=== PATIENT | male | born 1985 | race Two or more races ===

== ENCOUNTER 2024-10-27 09:57 | Outpatient (OUT) | payer OTHER, SELFPAY ==
--- OUTSIDE RECORDS SUMMARY | 2024-10-27 10:10 | XMS_ITS | Encounter Summary ---
Author Organization [facility] Address [address] [facility] [place] [address] Care Team Providers Care Component Technician Name Role Phone John Jhaveri Unavailable Unavailab le Ryan Candelario Primary Care Provider [phone] Encounter Details Date Type Department Care Team (Late st Contact Info) Description 05/11/2017 E.D. Visit [facility] Social Work [address] [place] [address] Xenia Eckert LSW [address] [place] [address] Social History Tobacco Use Types Packs/Day Years Used Date Smoking Tobacco: Never Assessed Sex and Gender Information Value Date Recorded Sex Assigned at Male 06/05/2021 8:24 AM EST Legal Sex Male 12:03 PM EST Gender Identity Male 06/05/2021 8:24 AM EST Sexual Orientation Not on file documented as of this encounter Plan of Treatment Not on file documented as of this encounter Visit Diagnoses Not on filedocumented in this encounter Care Teams Component Technician Relationship Specialty Start Date End Date Ryan Candelario APRN-CNP [address] [place] [address] [address] F[address] [facility] PCP - General Family Medicine 08/06/21 John Jhaveri LPCC [address] [place] [address] [place] [address] Group Behavioral Health Therapist 05/03/21 documented as of this encounter
--- OUTSIDE RECORDS SUMMARY | 2024-10-27 10:10 | XMS_ITS | Clinical Summary ---
Author Organization [facility] Address [address] [place] [address] Phone Care Team Providers Care Can Conveyor Feeder Name Role Phone Unavailable Primary Care Provider Unavailabl e Allergies No known active allergies Medications pantoprazole (ProtoNix) 40 mg EC tablet TAKE 1 TABLET BY MOUTH 2 TIMES A DAY FOR 14 DAYS THEN 1 TABLET DAILY 09/02/2024 Active ibuprofen 600 mg tabletIndication s:Cirrhosis of liver with ascites, unspecified hepatic cirrhosis type (Multi) Take 1 tablet (600 mg) by mouth every 6 hours if needed for mild pain (1 - 3) or fever (temp greater than 38.0 C). 30 tablet 09/06/2024 Active Encounters Date Type Department Care Team Description 09/06/2024 12:54 AM EDT - 09/06/2024 9:50 AM EDT Emergency [facility] Emergency Medicine [address] [place] [address] Kojo Wolfe MD Yax, Justin A, Cirrhosis of liver with ascites, unspecified hepatic cirrhosis type (Multi) (Primary Dx); Hypokalemia; Diarrhea, unspecified type Discharge Disposition: Home 09/06/2024 Travel from Last 3 Months Social History Tobacco Use Types Packs/Day Years Used Date Smoking Tobacco: Never Assessed Sex and Gender Information Value Date Recorded Sex Assigned at Not on file Legal Sex Male 11:49 PM EDT Gender Identity Not on file Sexual Orientation Not on file Last Filed Vital Signs Vital Sign Reading Time Taken Comments Blood Pressure 130/85 09/06/2024 5:37 AM EDT Pulse 82 09/06/2024 5:37 AM EDT Temperature 36.6 C (97.8 F) 09/06/2024 12:05 AM EDT Respiratory Rate 16 09/06/2024 5:37 AM EDT Oxygen Saturation 96% 09/06/2024 5:37 AM EDT Inhaled Oxygen Concentration - - Weight 147 kg (325 lb) 09/06/2024 12:05 AM EDT Height 185.4 cm (6' 1 ) 09/06/2024 12:05 AM EDT Body Mass Index 42.88 09/06/2024 12:05 AM EDT Plan of Treatment Upcoming Encounters Date Type Department Care Team (Late st Contact Info) Description 12/04/2024 8:30 AM EDT Office Visit [facility] [address] [facility] [address] [place] [id number] Triston Paulino MD [address] [facility] [address] [place], [place] [id number] Health Maintenance Due Date Last Done Comments HIV Screening 1987 Lipid Panel 1987 Yearly Adult Physical 1987 MMR Vaccines (1 of 1 - Stand rosario series) 08/06/1988 DTaP/Tdap/Td Vaccines (2 - Tdap) 04/30/1999 04/29/19 00 Varicella Vaccines (1 of 2 - 13+ 2-dose series) 08/06/2000 Hepatitis C Screening 08/06/2005 Hepatitis A Vaccines (1 of 2 - Risk 2-dose series) 08/06/2006 Hepatitis B Vaccines (1 of 3 - 19+ 3-dose series) 08/06/2006 Pneumococcal Vaccine: Pediat rics and At-Risk Adult Patients (1 of 2 - PCV) 08/06/2006 COVID-19 Vaccine ( - 2023-2 5 season) 2023 Influenza Vaccine (Season Ended) 2024 Zoster Vaccines (1 of 2) 08/06/2037 HIB Vaccines Aged Out No longer eligi ble based on patient's age to complete this topic HPV Vaccines (No Doses Required) Completed IPV Vaccines Aged Out No longer eligi ble based on patient's age to complete this topic Meningococcal Vaccine Aged Out No indira kristy eligible based on patient's age to complete this topic Rotavirus Vaccines Aged Out No longer eligible based on patient's age to complete this topic Procedures Procedure Name Priority Date/Time Associated Diagnosis Comments CT ABDOMEN PELVIS W IV CONTRAST STAT 09/06/2024 5:39 AM EDT MANUAL DIFFERENTIAL STAT 09/06/2024 1 :54 AM EDT MAGNESIUM Add-On 09/06/2024 1:54 AM EDT COAGULATION SCREEN STAT 09/06/2024 1: 54 AM EDT LIPASE STAT 09/06/2024 1:54 AM EDT COMPREHENSIVE METABOLIC PANEL STAT 09/06/2024 1:54 AM EDT TROPONIN I, HIGH SENSITIVITY STAT 09/06/2024 1:54 AM EDT CBC WITH AUTO DIFFERENTIAL STAT 09/06/2024 1:54 AM EDT from Last 3 Months Results * CT abdomen pelvis w IV contrast (09/06/2024 5:39 AM EDT) Anatomical Region Laterality Modality Abdominal, Body Computed Tomogra phy 09/06/2024 5:47 AM EDT 09/06/2024 5:47 AM EDT Impressions 09/06/2024 7:58 AM EDT 1.Enlarged liver with morphologic changes of chronic hepatocellular disease. The liver is infiltrated with hypodense lesions predominantly involving the caudate lobe and right lobe. Appearance is worrisome for possible infiltrative HCC. Further evaluation with contrast-enhanced enhanced MRI is recommended. 2.Small to moderate volume ascites predominantly perihepatic, right paracolic gutter, and pelvis. 3.Gallbladder wall thickening, likely related to the adjacent liver disease. No calcified gallstones. 4.Colonic diverticulosis without associated inflammatory changes. Signed by Jason Ortiz MD Narrative 09/06/2024 7:58 AM EDT STUDY: CT Abdomen and Pelvis with IV Contrast; 09/06/2024, 05:39 AM INDICATION: Generalized abdominal pain. Additional History: Cirrhosis. COMPARISON: None Available. ACCESSION NUMBER(S): [id number] ORDERING CLINICIAN: KOJO WOLFE TECHNIQUE: CT of the abdomen and pelvis was performed. Contiguous axial images were obtained at 3 mm slice thickness through the abdomen and pelvis. Coronal and sagittal reconstructions at 3 mm slice thickness were performed. Omnipaque 350 75 mL was administered intravenously. FINDINGS: Lower thorax: Lung bases:The lung bases are clear. Heart: The heart is partially imaged. Heart size is normal. Abdomen: Liver: The liver is enlarged with morphologic changes chronic hepatocellular disease. The liver is infiltrated with hypodense lesions predominantly involving the caudate lobe and right lobe. There are small upper abdominal varices. There is a recanalized umbilical vein. Gallbladder: The gallbladder is mildly distended with marked wall thickening, likely related to the adjacent liver disease. No calcified gallstones. Pancreas: The pancreas is normal in appearance with no ductal distention or focal lesion. Spleen: The spleen appears normal. Adrenal glands: Adrenal glands are unremarkable. Kidneys: The kidneys are symmetric in appearance with no nephrolithiasis or obstruction. No solid or cystic lesions. Gastrointestinal tract: The stomach appears normal. No large or small bowel distention or wall thickening. There is moderate colonic diverticulosis without associated inflammatory changes. The appendix appears normal. Vasculature: The aorta is not enlarged. Lymph nodes: No pathologically enlarged lymph nodes are seen. Peritoneum: There is small to moderate volume ascites predominantly perihepatic, right paracolic gutter, and pelvis.. No free air. Abdominal wall: No abdominal wall hernias are seen. There is diffuse anasarca. Pelvis: Reproductive: Unremarkable. Urinary bladder: The bladder is partially distended and unremarkable in appearance. Lymph nodes: No pathologically enlarged lymph nodes are seen. Musculoskeletal: Unremarkable. Procedure Note Jason Ortiz MD - 09/06/2024 STUDY: CT Abdomen and Pelvis with IV Contrast; 09/06/2024, 05:39 AM INDICATION: Generalized abdominal pain. Additional History: Cirrhosis. COMPARISON: None Available. ACCESSION NUMBER(S): [id number] ORDERING CLINICIAN: KOJO WOLFE TECHNIQUE: CT of the abdomen and pelvis was performed. Contiguous axial images were obtained at 3 mm slice thickness through the abdomen and pelvis. Coronal and sagittal reconstructions at 3 mm slice thickness were performed. Omnipaque 350 75 mL was administered intravenously. FINDINGS: Lower thorax: Lung bases:The lung bases are clear. Heart: The heart is partially imaged. Heart size is normal. Abdomen: Liver: The liver is enlarged with morphologic changes chronic hepatocellular disease. The liver is infiltrated with hypodense lesions predominantly involving the caudate lobe and right lobe. There are small upper abdominal varices. There is a recanalized umbilical vein. Gallbladder: The gallbladder is mildly distended with marked wall thickening, likely related to the adjacent liver disease. No calcified gallstones. Pancreas: The pancreas is normal in appearance with no ductal distention or focal lesion. Spleen: The spleen appears normal. Adrenal glands: Adrenal glands are unremarkable. Kidneys: The kidneys are symmetric in appearance with no nephrolithiasis or obstruction. No solid or cystic lesions. Gastrointestinal tract: The stomach appears normal. No large or small bowel distention or wall thickening. There is moderate colonic diverticulosis without associated inflammatory changes. The appendix appears normal. Vasculature: The aorta is not enlarged. Lymph nodes: No pathologically enlarged lymph nodes are seen. Peritoneum: There is small to moderate volume ascites predominantly perihepatic, right paracolic gutter, and pelvis.. No free air. Abdominal wall: No abdominal wall hernias are seen. There is diffuse anasarca. Pelvis: Reproductive: Unremarkable. Urinary bladder: The bladder is partially distended and unremarkable in appearance. Lymph nodes: No pathologically enlarged lymph nodes are seen. Musculoskeletal: Unremarkable. IMPRESSION: 1.Enlarged liver with morphologic changes of chronic hepatocellular disease. The liver is infiltrated with hypodense lesions predominantly involving the caudate lobe and right lobe. Appearance is worrisome for possible infiltrative HCC. Further evaluation with contrast-enhanced enhanced MRI is recommended. 2.Small to moderate volume ascites predominantly perihepatic, right paracolic gutter, and pelvis. 3.Gallbladder wall thickening, likely related to the adjacent liver disease. No calcified gallstones. 4.Colonic diverticulosis without associated inflammatory changes. Signed by Jason Ortiz MD Kojo Wolfe MD IMG CT PROCEDURES Fin al Result * (ABNORMAL) CBC and Auto Differential (09/06/2024 1:54 AM EDT) WBC 14.4(H) 4.4 - 11.3 x10*3/uL LAB HEMATOLOGY METHOD 09/06/2024 3:11 AM EDT [facility] nRBC 0.0 0.0 - 0.0 /100 WBCs LAB HEMATOLOGY METHOD 09/06/2024 3:11 AM EDT [facility] RBC 2.84(L) 4.50 - 5.90 x10*6/uL LAB HEMATOLOGY METHOD 09/06/2024 3:11 AM EDT [facility] Hemoglobin 8.5(L) 13.5 - 17.5 g/dL LAB HEMATOLOGY METHOD 09/06/2024 3:11 AM EDT [facility] Hematocrit 24.1(L) 41.0 - 52.0 % LAB HEMATOLOGY METHOD 09/06/2024 3:11 AM EDT [facility] MCV 85 80 - 100 fL LAB HEMATOLOGY METHOD 09/06/2024 3:11 AM EDT [facility] MCH 29.9 26.0 - 34.0 pg LAB HEMATOLOGY METHOD 09/06/2024 3:11 AM EDT [facility] MCHC 35.3 32.0 - 36.0 g/dL LAB HEMATOLOGY METHOD 09/06/2024 3:11 AM EDT [facility] RDW 30.8(H) 11.5 - 14.5 % LAB HEMATOLOGY METHOD 09/06/2024 3:11 AM EDT [facility] Platelets 306 150 - 450 x10*3/uL LAB HEMATOLOGY METHOD 09/06/2024 3:11 AM EDT [facility] Immature Granulocytes %, Automated 0.4 0.0 - 0.9 % LAB HEMATOLOGY METHOD 09/06/2024 3:11 AM EDT [facility] Comment:Immature Granulocyte Count (IG) includes promyelocytes, myelocytes and metamyelocytes but does not include bands. Percent differential counts (%) should be interpreted in the context of the absolute cell counts (cells/UL). Immature Granulocytes Absolute, Automated 0.06 0.00 - 0.70 x10*3/uL LAB HEMATOLOGY METHOD 09/06/2024 3:11 AM [facility] Blood Venous blood specimen / Unknown Venipuncture / Unknown 09/06/2024 1:54 AM EDT 09/06/2024 2:19 AM EDT Narrative [facility] - 09/06/2024 3:11 AM EDT The previously reported component Neutrophils % is no longer being reported.The previously reported component Lymphocytes % is no longer being reported.The previously reported component Monocytes % is no longer being reported.The previously reported component Eosinophils % is no longer being reported.The previously reported component Basophils % is no longer being reported.The previously reported component Absolute Neutrophils is no longer being reported.The previously reported component Absolute Lymphocytes is no longer being reported.The previously reported component Absolute Monocytes is no longer being reported.The previously reported component Absolute Eosinophils is no longer being reported.The previously reported component Absolute Basophils is no longer being reported. us Jono Washington DO LAB BLOOD ORDERABLES Final Res ult [facility] [address] [address] * (ABNORMAL) Manual Differential (09/06/2024 1:54 AM EDT) Neutrophils %, Manual 77.8 40.0 - 80.0 % 09/06/2024 3:11 AM EDT [facility] Comment:Percent differential counts (%) should be interpreted in the context of the absolute cell counts (cells/uL). Lymphocytes %, Manual 6.0 13.0 - 44.0 % 09/06/2024 3:11 AM EDT [facility] Monocytes %, Manual 5.1 2.0 - 10.0 % 09/06/2024 3:11 AM EDT [facility] Eosinophils %, Manual 2.5 0.0 - 6.0 % 09/06/2024 3:11 AM EDT [facility] Basophils %, Manual 2.6 0.0 - 2.0 % 09/06/2024 3:11 AM EDT [facility] Atypical Lymphocytes %, Manual 6.0 0.0 - 2.0 % 09/06/2024 3:11 AM EDT [facility] Seg Neutrophils Absolute, Manual 11.20(H) 1.20 - 7.00 x10*3/uL 09/06/2024 3:11 AM EDT [facility] Lymphocytes Absolute, Manual 0.86(L) 1.20 - 4.80 x10*3/uL 09/06/2024 3:11 AM EDT [facility] Monocytes Absolute, Manual 0.73 0.10 - 1.00 x10*3/uL 09/06/2024 3:11 AM EDT [facility] Eosinophils Absolute, Manual 0.36 0.00 - 0.70 x10*3/uL 09/06/2024 3:11 AM EDT [facility] Basophils Absolute, Manual 0.37(H) 0.00 - 0.10 x10*3/uL 09/06/2024 3:11 AM EDT [facility] Atypical Lymphs Absolute, Manual 0.86(H) 0.00 - 0.50 x10*3/uL 09/06/2024 3:11 AM EDT [facility] Total Cells Counted 117 09/06/2024 3:11 AM EDT [facility] RBC Morphology See Below 09/06/2024 3:11 AM EDT [facility] Polychromasia Mild 09/06/2024 3:11 AM EDT [facility] Hypochromia Marked 09/06/2024 3:11 AM EDT [facility] Target Cells Many 09/06/2024 3:11 AM EDT [facility] Blood Venous blood specimen / Unknown Venipuncture / Unknown 09/06/2024 1:54 AM EDT 09/06/2024 2:19 AM EDT us Jono Washington DO LAB BLOOD ORDERABLES Final Res ult Performing Organization Address City/State/[facility] Co de Phone Number [facility] [address] [place] [address] * Troponin I, High Sensitivity (09/06/2024 1:54 AM EDT) Pathologist [facility] Troponin I, High Sensitivity (CMC) 5 0 - 53 ng/L LAB IMMUNOASSAY METHOD 09/06/2024 2:49 AM EDT [facility] Blood Venous blood specimen / Unknown Venipuncture / Unknown 09/06/2024 1:54 AM EDT 09/06/2024 2:19 AM EDT Narrative [facility] - 09/06/2024 2:49 AM EDT Less than 99th percentile of normal range cutoff- Female and children under 18 years old <35 ng/L; Male <54 ng/L: Negative Repeat testing should be performed if clinically indicated. Female and children under 18 years old 35-120 ng/L; Male 54-120 ng/L: Consistent with possible cardiac damage and possible increased clinical risk. Serial measurements may help to assess extent of myocardial damage. >120 ng/L: Consistent with cardiac damage, increased clinical risk and myocardial infarction. Serial measurements may help assess extent of myocardial damage. NOTE: Children less than 1 year old may have higher baseline troponin levels and results should be interpreted in conjunction with the overall clinical context. NOTE: Troponin I testing is performed using a different testing methodology at [facility] than at other [facility]. Direct result comparisons should only be made within the same method. Jono Washington DO LAB BLOOD ORDERABLES Final Res ult Performing Organization Address [facility] Co de Phone Number [facility] [id number] [place] [address] * (ABNORMAL) Coagulation Screen (09/06/2024 1:54 AM EDT) Protime 16.1(H) 9.8 - 12.4 seconds LAB COAGULATION METHOD 09/06/2024 2:35 AM EDT [facility] INR 1.5(H) 0.9 - 1.1 LAB COAGULATION METHOD 09/06/2024 2:35 AM EDT [facility] aPTT 35 26 - 36 seconds LAB COAGULATION METHOD 09/06/2024 2:35 AM EDT [facility] Blood Venous blood specimen / Unknown Venipuncture / Unknown 09/06/2024 1:54 AM EDT 09/06/2024 2:19 AM EDT [facility] - 09/06/2024 2:35 AM EDT The APTT is no longer used for monitoring Unfractionated Heparin Therapy. For monitoring Heparin Therapy, use the Heparin Assay. Jono Washington DO LAB BLOOD ORDERABLES Final Res ult Performing Organization Address [facility] Co de Phone Number [facility] [id number] [place] [phone] * (ABNORMAL) Magnesium (09/06/2024 1:54 AM EDT) [facility] Magnesium 1.53(L) 1.60 - 2.40 mg/dL LAB CHEMISTRY METHOD 09/06/2024 3:39 AM EDT [facility] Blood Venous blood specimen / Unknown Venipuncture / Unknown 09/06/2024 1:54 AM EDT 09/06/2024 2:19 AM EDT Kojo Wolfe MD LAB BLOOD ORDERABLES Final Result Performing Organization Address [facility] Co de Phone Number [facility] [address] [place] [phone] * Lipase (09/06/2024 1:54 AM EDT) [facility] Lipase 65 9 - 82 U/L LAB CHEMISTRY METHOD 09/06/2024 3:04 AM EDT [facility] Comment:F-zedicu-l-benzoquin one imine (metabolite of Acetaminophen)will generate erroneously low results in samples for patients that have taken toxic doses of acetaminophen. Blood Venous blood specimen / Unknown Venipuncture / Unknown 09/06/2024 1:54 AM EDT 09/06/2024 2:19 AM EDT Narrative [facility] - 09/06/2024 3:04 AM EDT Venipuncture immediately after or during the administration of Metamizole may lead to falsely low results. Testing should be performed immediately prior to Metamizole dosing. Jono Washington DO LAB BLOOD ORDERABLES Final Res ult Performing Organization Address [facility]/ZIP Co de Phone Number [facility] [address] [place] [phone] * (ABNORMAL) Comprehensive metabolic panel (09/06/2024 1:54 AM EDT) [facility] Glucose 119(H) 74 - 99 mg/dL LAB CHEMISTRY METHOD 09/06/2024 3:14 AM EDT [facility] Sodium 133(L) 136 - 145 mmol/L LAB CHEMISTRY METHOD 09/06/2024 3:14 AM T [facility] Potassium 2.6(LL) 3.5 - 5.3 mmol/L LAB CHEMISTRY METHOD 09/06/2024 3:14 AM EDT [facility] Chloride 98 98 - 107 mmol/L LAB CHEMISTRY METHOD 09/06/2024 3:14 AM EDT [facility] Bicarbonate 24 21 - 32 mmol/L LAB CHE[facility]STRY [facility]24 [facility] Anion Gap 14 mmol/L 09/06/2024 3:14 AM [facility] Urea Nitrogen 4(L) 6 - 23 mg/dL LAB CHEMISTRY METHOD 09/06/2024 3:14 AM [facility] Creatinine 0.71 0.50 - 1.30 mg/dL LAB CHEMISTRY METHOD 09/06/2024 3:14 AM [facility] eGFR >90 >60 mL/min/1. 73m*2 LAB CHEMISTRY METHOD 09/06/2024 3:14 AM [facility] Comment: Calculations of estimated GFR are performed using the 2020 CKD-EPI Study Refit equation without the race variable for the IDMS-Traceable creatinine methods. https://jasn.asnjournals.org/content///ASN.5953621288 Calcium 7.6(L) 8.6 - 10.6 mg/dL LAB CHEMISTRY METHOD 09/06/2024 3:14 AM [facility] Albumin 2.8(L) 3.4 - 5.0 g/dL LAB CHEMISTRY METHOD 09/06/2024 3:14 AM [facility] Alkaline Phosphatase 176(H) 33 - 120 U/L LAB CHEMISTRY METHOD 09/06/2024 3:14 AM [facility] Total Protein 7.7 6.4 - 8.2 g/dL LAB CHEMISTRY METHOD 09/06/2024 3:14 AM [facility] AST 110(H) 9 - 39 U/L LAB CHEMISTRY METHOD 09/06/2024 3:[facility] Bilirubin, Total 6.4(H) 0.0 - 1.2 mg/dL LAB CHEMISTRY METHOD 09/06/2024 3:14 AM EDT [facility] ALT 26 10 - 52 U/L LAB CHEMISTRY METHOD 09/06/2024 3:14 AM EDT [facility] Comment:Patients treated wit h Sulfasalazine may generate falsely decreased results for ALT. Blood Venous blood specimen / Unknown Venipuncture / Unknown 09/06/2024 1:54 AM EDT 09/06/2024 2:19 AM EDT us Jono Washington DO LAB BLOOD ORDERABLES Final Res ult [facility] [address] [facility] [id number] [place], [place] [id number] from Last 3 Months Insurance [employer]
--- OUTSIDE RECORDS SUMMARY | 2024-10-27 10:10 | XMS_ITS | Clinical Summary ---
Author Organization [facility] Address [address] [facility] [place] [address] Care Team Providers Care Glove Parts Inspector Name Role Phone KassandravanessaJohn [facility] Unavailable Unavailab le Ryan Candelario APRN-BUILDING OFFICIAL Primary Care Provider [phone] Source Comments The following information is NOT included in Care Everywhere downloads:Psychiatric notes, ECG results, Cardiac Rehab notes, Pulmonary Function notes, data from [employer] 2000 (includes but not limited toPregnancy data,audiograms, eye exams, pre-surgical evaluation notes, well-child exam data).[facility] Allergies No known active allergies Medications * This document contains information received from the source organization and may not represent a complete record from that organization. No known medications Active Problems Problem Noted Date Diagnosed Date Moderate alcohol use disorder 05/03/2021 Drug abuse 06/24/2008 Tobacco use disorder 06/24/2008 Unspecified hemorrhoids without mention of compl ication 06/24/2008 Immunizations Immunization Administration Dates Next Due Tdap (NPL=105) 08/06/2021(Deferred: Patient Refused - Pt states had tdap two years ago) Social History Tobacco Use Types Packs/Day Years Used Date Smoking Tobacco: Never Smokeless Tobacco: Never Alcohol Use Standard Drinks/Week Comments Yes 0 (1 standard drink = 0.6 oz pur e alcohol) Ocassional social drinking Sex and Gender Information Value Date Recorded Sex Assigned at Male 06/05/2021 8:24 AM EST Legal Sex Male 12:03 PM EST Gender Identity Male 06/05/2021 8:24 AM EST Sexual Orientation Not on file Last Filed Vital Signs Vital Sign Reading Time Taken Comments Blood Pressure 149/85 08/06/2021 4:00 AM EDT Pulse 114 08/06/2021 4:00 AM EDT Temperature 36.7 C (98 F) 08/06/2021 4:00 AM EDT Respiratory Rate 16 08/06/2021 4:00 AM EDT Oxygen Saturation 96% 08/06/2021 4:00 AM EDT Inhaled Oxygen Concentration - - Weight 143.3 kg (315 lb 14.4 oz) 2017 11:46 AM EST Height 182.9 cm (6') 05/17/2017 11:46 AM EST Body Mass Index 42.84 05/17/2017 11:46 AM EST Plan of Treatment Health Maintenance Due Date Last Done Comments Foot Exam 1985 Eye Exam 1985 Urine Protein (microalbumin) 1985 HIV Test 08/06/2002 Hepatitis C Antibody 08/06/2005 Tdap Booster 08/06/2005 Hepatitis A (HAV) Vaccine (optional start 19+ years) 08/06/2006 Hepatitis B (HBV) Vaccine (1 of 3 - 19+ 3-dose series) 08/06/2006 Pneumococcal Vaccine(s) (1 o f 2 - PCV) 08/06/2006 HPV Vaccine (optional start 27-45 years) 08/06/2014 COVID-19 Vaccine (1 - 2023-2 5 season) 2023 Hemoglobin A1C 04/08/2024 10/08/2023, 06/27, 03/28/2023, Additional history exists Lipid Profile 10/07/2024 10/08/2023, 10/27, 11/05/2021, Additional history exists Influenza Vaccine (#1) 2024 Basic Metabolic Panel 09/06/2025 09/06/2024 , 10/10/2023, 10/09/2023, Additional history exists Shingles (RZV) Vaccine (1 of 2) 08/06/2037 Procedures Procedure Name Priority Date/Time Associated Diagnosis Comments BASIC METABOLIC PANEL STAT 05/11/2017 6:20 AM EST from Last 3 Months or Most Recently Relevant to Health Maintenance Results * (ABNORMAL) BASIC METABOLIC PANEL (05/11/2017 6:20 AM EST) Glucose 100 68 - 110 mg/dL 05/11/2017 7:07 AM EST [facility] Sodium 135 135 - 148 mmol/L 05/11/2017 7:07 AM EST [facility] Potassium 4.3 3.3 - 5.3 mmol/L 05/11/2017 7:07 AM EST [facility] Comment:Hemolysis present Carbon Dioxide 23 21 - 30 mmol/L 05/11/2017 7:07 AM EST [facility] Chloride 101 97 - 111 mmol/L 05/11/2017 7:07 AM EST [facility] Blood Urea Nitrogen 10 8 - 22 mg/dL 05/11/2017 7:07 AM EST [facility] Creatinine 0.90 0.80 - 1.30 mg/dL 05/11/2017 7:07 AM EST [facility] Comment: Note: New reference ranges effective 17. Calcium 8.7 8.4 - 10.4 mg/dL 05/11/2017 7:07 AM EST [facility] Anion Gap 15(H) 5 - 13 05/11/2017 7:07 AM EST [facility] Estimated GFR (CKD-EPI) 115 >=60 mL/min/1.7 3sqm 05/11/2017 7:07 AM EST [facility] Blood BLOOD SPECIMEN / Unknown 05/11/2017 6:20 AM EST 05/11/2017 6:47 AM EST Antwon Guajardo [address] [facility] Final Resu lt [facility] [address] [place] [id number] from Last 3 Months or Most Recently Relevant to Health [place] [address] [employer] Care Teams Glove Parts Inspector Relationship Specialty Start Date End Date Ryan Candelario APRN-JENIFER [address] [place] [address] PCP - General Family Medicine 08/06/21 John Jhaveri [facility] [address] [place] [address] Group Behavioral Health Therapist 05/03/21
--- OUTSIDE RECORDS SUMMARY | 2024-10-27 10:10 | XMS_ITS | Encounter Summary ---
Author Organization [facility] Address [address] [facility] [place] [address] Care Team Providers Care Rn Case Mgr Name Role Phone John Jhaveri Unavailable Unavailab le Ryan Candelario Primary Care Provider [phone] Encounter Details Date Type Department Care Team (Late st Contact Info) Description 10/26/2021 Abstract PATIENT ACUITY SCORE Social History Tobacco Use Types Packs/Day Years [...] on filedocumented in this encounter Care Teams Rn Case Mgr Relationship Specialty Start Date End Date Ryan Candelario APRN-CNP [address] [place] [address] PCP - General Family Medicine 08/06/21 John Jhaveri [facility] [address] [place] [address] Group Behavioral Health Therapist 05/03/21 documented as of this encounter
--- NOTE | 2024-10-27 10:42 | XR_ITS ---
The [address] [address] Patient Name: RAMIRO BECKER MRN: [facility]:[id number] date: 1985 Sex: M Assigned Patient Location: LAB Current Patient Location: LAB Accession/Order Number: [id number] Exam Date: 10/27/2024 11:10 Report Date: 10/27/2024 11:10 At the request of: TONY WONG TABLE MAKER Procedure: XR chest 2V PA AND LATERAL CHEST: CLINICAL HISTORY: Cough COMPARISON: None There is no focal parenchymal consolidation, effusion or pneumothorax. The cardiac, hilar and mediastinal silhouettes are within normal limits. There is no vascular congestion. The visualized bony thorax is intact. XR/XR chest 2V IMPRESSION: NO ACUTE CARDIOPULMONARY ABNORMALITY. Impression dictated by: Megan Sterling M.D. 10/27/2024 11:10 AM Dictation Location: [place] [address] Electronically authenticated by: [id number] Y Date: 10/27/2024 11:10
[2024-10-27 11:39] LABS: Iron 16.0 ug/dL (65.0-175.0); Percent Iron Saturation 3.7 %; Total Iron Binding Capacity 427.0 ug/dL (250.0-450.0)
[2024-10-27 11:56] LABS: Ferritin 10.0 ng/mL (26.0-388.0); Folate 7.10 ng/mL (8.60-58.90)
[2024-10-28 03:07] LABS: Vitamin B12 1273 pg/mL (232-1245)
== END 2024-10-27 09:58 | disposition home or self-care (01) ==
LOC: LAB 10:07
PROVIDERS: Visit Provider Nurse Practitioner Primary Care
DX: F10.20 Alcohol dependence, uncomplicated (principal); K70.30 Alcoholic cirrhosis of liver without ascites; G47.39 Other sleep apnea; G47.00 Insomnia, unspecified; F41.1 Generalized anxiety disorder
CPT/HCPCS: 36415; 71046; 82607; 82728; 82746; 83540; 83550